=== PATIENT | female | born 1950 | race Caucasian/White ===

== ENCOUNTER 2016-07-17 11:07 | Inpatient (IN) | payer BC ==
[~2016-07-17] VITALS: Ht 160 cm; Wt 73.5 kg
[2016-07-17] MEDS ORDERED: SYNTHROID100 MCG PO (11:27)
[2016-07-17] MEDS ORDERED: SIMVASTATIN20 MG PO (11:27)
[2016-07-17] MEDS ORDERED: UNISOM25 MG PO (11:28)
[2016-07-19] MEDS ORDERED: MEDROL DOSEPAK4 MG PO (10:00)
[2016-07-19] MEDS ORDERED: ZITHROMAX250 MG PO (10:02)
[2016-07-19] MEDS ORDERED: PROBIOTIC1 EACH PO (10:04)
[2016-07-19] MEDS ORDERED: TESSALON PERLE100 M1 PO (10:28)
== END 2016-07-19 10:45 | disposition short-term general hospital (02) | DRG 194 ==
LOC: IP 11:07
PROVIDERS: ADMIT Family Medicine
PROC: 3E0F7GC Introduction of Other Therapeutic Substance into Respiratory Tract, Via Natural or Artificial Opening (ICD-10-PCS; principal; 2016-07-19)
DX: J18.9 Pneumonia, unspecified organism (principal); J98.11 Atelectasis; E78.5 Hyperlipidemia, unspecified; E03.9 Hypothyroidism, unspecified
CPT/HCPCS: A9150; J0456; J0696; J2930